=== PATIENT | male | born 1980 | race Caucasian/White ===

== ENCOUNTER 2020-10-12 05:38 | Emergency (ER) | payer MEDICAID ==
[~2020-10-12] VITALS: Ht 175.3 cm; Wt 70.3 kg
[2020-10-12 05:38] VITALS: BP_SYST 153
--- NOTE | 2020-10-12 06:00 | NUR ---
Patient left without being seen. MD Ivey notified, patient is low risk for SI had denied any SI or HI. "wanted medication changed"
== END 2020-10-12 06:00 | disposition left against medical advice (07) ==
LOC: SED 05:38
DX: F32.9 Major depressive disorder, single episode, unspecified (principal); Z53.21 Procedure and treatment not carried out due to patient leaving prior to being seen by health care provider

== ENCOUNTER 2020-10-12 07:11 | Emergency (ER) | payer MEDICAID ==
--- NOTE | 2020-10-12 07:15 | NUR ---
PT USING RESTROOM, PT STATES HE IS GOING TO [facility]. DENIES ANY SUICIDAL IDEATIONS OR HOMOCIDAL IDEATIONS. PT STATES HE NEEDS TO BE SEEN BY PSYCH, EXPLAINED TO PT HE COULD BE SEEN HERE, STATES HE WANTS TO LEAVE TO [place]. ALERT AND ORIENTED X4. DENIES ANY PAIN OR DISCOMFORT, AMBULATORY WITH STEADY GAIT.
== END 2020-10-12 07:15 | disposition left against medical advice (07) ==
LOC: SED 07:11
DX: Z00.8 Encounter for other general examination (principal); Z53.21 Procedure and treatment not carried out due to patient leaving prior to being seen by health care provider